=== PATIENT | female | born 1980 | race Caucasian/White ===

== ENCOUNTER 2016-08-24 17:41 | Emergency (ER) | payer SELFPAY ==
[~2016-08-24] VITALS: Ht 162.6 cm; Wt 55.0 kg
[~2016-08-24 17:41] MED LIST: CITA20 PO; DICL50TA2 PO; ROBA750T3 PO
[2016-08-24 17:48] VITALS: BP 123/75; PULSE 83; RESP 15; TEMP 98.8; O2SAT 100
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
== END 2016-08-24 18:16 | disposition left against medical advice (07) ==
LOC: PHEFT 17:41
DX: T84.228A Displacement of internal fixation device of other bones, initial encounter (principal)
CPT/HCPCS: 99281

== ENCOUNTER 2016-10-26 17:07 | Emergency (ER) | payer SELFPAY ==
[~2016-10-26] VITALS: Ht 162.6 cm; Wt 60.0 kg
[2016-10-26 17:11] VITALS: BP 137/88; PULSE 112; RESP 20; TEMP 98.3; O2SAT 98
== END 2016-10-26 19:45 | disposition left against medical advice (07) ==
LOC: NED 19:40
DX: S60.459A Superficial foreign body of unspecified finger, initial encounter (principal); X58.XXXA Exposure to other specified factors, initial encounter; Z53.21 Procedure and treatment not carried out due to patient leaving prior to being seen by health care provider
CPT/HCPCS: 99281